=== PATIENT | male | born 2000 | race Caucasian/White ===

== ENCOUNTER 2021-07-02 19:45 | Emergency (ER) | payer MEDICAID, SELFPAY ==
[2021-07-02 19:51] VITALS: BP 121/80; PULSE 82; RESP 16; TEMP 36.6; O2SAT 98; BMI 26.4
--- NOTE | 2021-07-02 20:22 | ED.PSYCH ---
HPI - Psych General Chief Complaint: Psychiatric Symptoms <Jewel Barbosa MD - Last Filed: 07/02/21 21:37> Stated Complaint: SI <Jewel Barbosa MD - Last Filed: 07/02/21 21:37> Time Seen by Provider: 07/02/21 20:09 <Jewel Barbosa MD - Last Filed: 07/02/21 21:37> Source: patient and RN notes reviewed <Jewel Barbosa MD - Last Filed: 07/02/21 21:37> Mode of arrival: EMS <Jewel Barbosa MD - Last Filed: 07/02/21 21:37> Limitations: no limitations <Jewel Barbosa MD - Last Filed: 07/02/21 21:37> History of Present Illness HPI Narrative: 20-year-old male who presents emergency department for evaluation of suicidal ideation. The patient has a history of depression, anxiety and PTSD. The patient states that he has been feeling depressed for weeks. He states that he is currently feeling suicidal and he cut his left wrist with a [employer] card prior to coming to the emergency department. Patient states that he is depression is triggered by his father's in 2019. 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 He also states that he has the feeling that he wants to hurt other people but does not have a plan. He states he has never hurt anyone in the past. He reported visual hallucinations to the ED nurse. He denies fever, chills, chest pain, shortness of breath, nausea, vomiting, numbness or weakness. <Jewel Barbosa MD - Last Filed: 07/02/21 21:37> Related Data Home Medications: Home Medications Medication Instructions Recorded Confirmed aripiprazole 10 mg tablet 10 mg PO DAILY 07/02/21 07/02/21 guanfacine 1 mg tablet 1 mg PO BID 07/02/21 07/02/21 hydroxyzine pamoate 50 mg capsule 50 mg PO BID PRN 07/02/21 07/02/21 melatonin 3 mg tablet 3 mg PO BEDTIME 07/02/21 07/02/21 olanzapine 5 mg tablet 5 mg PO BEDTIME 07/02/21 07/02/21 quetiapine 50 mg tablet 50 mg PO DAILY 07/02/21 07/02/21 <Jewel Barbosa MD - Last Filed: 07/02/21 21:37> Allergies/Adverse Reactions: Allergies Allergy/AdvReac Type Severity Reaction Status Date / Time No Known Allergies Allergy Verified 07/02/21 20:03 <Jewel Barbosa MD - Last Filed: 07/02/21 21:37> Review of Systems Review of Systems: Yes all other systems are reviewed and are negative <Jewel Barbosa MD - Last Filed: 07/02/21 21:37> [facility] Past Medical History [facility] Narrative: Past medical history: Depression, anxiety, PTSD. Past surgical history: None. Social history: He smokes 1 pack of cigarettes per day x1 year. He states that he drinks alcohol but has not had any alcohol to drink in 1 month. He states that he usually drinks the big his bottle of Sindhu that he can buy. He states that he smokes marijuana daily. <Jewel Barbosa MD - Last Filed: 07/02/21 21:37> Medical History: Medical History (Updated 07/03/21 @ 08:18 by KALYAN Jacobson) Anxiety Depression Intellectual disability PTSD (post-traumatic stress disorder) <Jewel Barbosa MD - Last Filed: 07/02/21 21:37> Social History Social History: Social History Advance Directives: No <Jewel Barbosa MD - Last Filed: 07/02/21 21:37> Physical Exam Vital Signs: Vital Signs: Last Vital Signs Temp 97.9 F 07/02/21 19:51 Pulse 82 07/02/21 19:51 Resp 16 07/02/21 19:51 BP 121/80 07/02/21 19:51 Pulse Ox 98 07/02/21 19:51 BMI result Body Mass Index 26.4 <Jewel Barbosa MD - Last Filed: 07/02/21 21:37> Vital Signs: Last Vital Signs Temp 97.9 F 07/02/21 19:51 Pulse 82 07/02/21 19:51 Resp 16 07/02/21 19:51 BP 121/80 07/02/21 19:51 Pulse Ox 98 07/02/21 19:51 BMI result Body Mass Index 26.4 <KALYAN Jacobson - Last Filed: 07/03/21 08:18> Const: General: cooperative and no acute distress <Jewel Barbosa MD - Last Filed: 07/02/21 21:37> Orientation/consciousness: oriented to person and oriented to place <Jewel Barbosa MD - Last Filed: 07/02/21 21:37> Limitations: no limitations <Jewel Barbosa MD - Last Filed: 07/02/21 21:37> HENMT: Head: Yes normal to inspection, Yes normocephalic and Yes atraumatic <Jewel Barbosa MD - Last Filed: 07/02/21 21:37> Ears: external ears normal <Jewel Barbosa MD - Last Filed: 07/02/21 21:37> General nose exam: Normal external nose present <Jewel Barbosa MD - Last Filed: 07/02/21 21:37> Face and sinus: Yes normal facial exam <Jewel Barbosa MD - Last Filed: 07/02/21 21:37> Mouth: Normal oral and palatal mucosa present <Jewel Barbosa MD - Last Filed: 07/02/21 21:37> Throat: Yes posterior oropharynx normal <Jewel Barbosa MD - Last Filed: 07/02/21 21:37> Eyes: General: appearance normal, both eyes and all related structures <Jewel Barbosa MD - Last Filed: 07/02/21 21:37> Pupils: Equal, round and reactive pupils present <Jewel Barbosa MD - Last Filed: 07/02/21 21:37> Neck: Neck: Yes normal visual inspection, Yes no lymphadenopathy, Yes trachea midline and Yes supple <Jewel Barbosa MD - Last Filed: 07/02/21 21:37> Chest: Chest palpation & inspection: normal inspection of the chest and normal palpation of entire chest wall <Jewel Barbosa MD - Last Filed: 07/02/21 21:37> Resp: Effort & Inspection: normal respiratory effort and able to speak in complete sentences <MD Dariusz Jeronimo Last Filed: 07/02/21 21:37> Auscultation: clear to auscultation bilaterally <MD Dariusz Jeronimo Last Filed: 07/02/21 21:37> Cardio: Rate: regular rate <MD Dariusz Jeronimo Last Filed: 07/02/21 21:37> Rhythm: regular rhythm <MD Dariusz Jeronimo Last Filed: 07/02/21 21:37> Heart sounds: S1 normal heart sound present, S2 normal heart sound present and no murmurs <MD Dariusz Jeronimo Last Filed: 07/02/21 21:37> GI: Inspection: Yes normal to inspection <MD Dariusz Jeronimo Last Filed: 07/02/21 21:37> Palpation (GI): Soft to palpation, nontender and no guarding <MD Dariusz Jeronimo Last Filed: 07/02/21 21:37> Auscultation: normal bowel sounds <MD Dariusz Jeronimo Last Filed: 07/02/21 21:37> : General: Yes no CVA tenderness <MD Dariusz Jeronimo Last Filed: 07/02/21 21:37> Back/Spine/Pelvis: Back: no CVA tenderness <MD Dariusz Jeronimo Last Filed: 07/02/21 21:37> Skin: Other: Superficial abrasion to the left wrist consistent with the patient's description of trying to cut himself with a [employer] card <MD Dariusz Jeronimo Last Filed: 07/02/21 21:37> Neuro: General: oriented to person and oriented to place <MD Dariusz Jeronimo Last Filed: 07/02/21 21:37> Cranial nerves: Yes CN's II-XII intact bilaterally and Yes Equal, round and reactive pupils present <MD Dariusz Jeronimo Last Filed: 12/07/21 21:37> Cognition (Neuro): normal cognition <Jewel Barbosa MD - Last Filed: 07/02/21 21:37> Motor exam (neuro): 5/5 motor strength present throughout <Jewel Barbosa MD - Last Filed: 07/02/21 21:37> Extrem: General: Yes normal to inspection <Jewel Barbosa MD - Last Filed: 07/02/21 21:37> Psych: Appearance: grossly normal <Jewel Barbosa MD - Last Filed: 07/02/21 21:37> Speech and movement: Normal speech and movement present <Jewel Barbosa MD - Last Filed: 07/02/21 21:37> Affect: Other affect and mood findings present (Flat affect) <Jewel Barbosa MD - Last Filed: 07/02/21 21:37> Attitude: cooperative <Jeewl Barbosa MD - Last Filed: 07/02/21 21:37> Thought process: Normal thought process present <Jewel Barbosa MD - Last Filed: 07/02/21 21:37> Thought content: Suicidality present and Homicidality present <Jewel Barbosa MD - Last Filed: 07/02/21 21:37> Course Course Course Narrative: 20-year-old male with a history of depression, anxiety, PTSD currently who is currently living in a [address] residency program and he states that he has been there 3 weeks, who presents emergency department for evaluation of suicidal ideation, homicidal ideation and visual hallucination. Initial vital signs were normal. Physical examination revealed a flat affect otherwise the patient was cooperative and is exam was unremarkable. I ordered a CBC, BMP, COVID-19, urine drug screen, alcohol level, acetaminophen level and salicylate level. 2136: Patient's COVID-19 was negative, CBC and CMP were normal. Salicylates, acetaminophen and alcohol were all below detectable limits. At the end of my shift, the patient's N evaluation is pending, therefore the patient's care was turned over to my colleague, Dr. Melody Nelson. <Jewel Barbosa MD - Last Filed: 07/02/21 21:37> MDM - Psych Lab Data Result diagrams: : 07/02/21 20:30 07/02/21 20:30 <Jewel Barbosa MD - Last Filed: 07/02/21 21:37> Labs: Lab Results 07/02/21 07/02/21 07/02/21 Range/Units 20:06 20:30 20:30 WBC 9.2 (4.8-10.8) X10*3/uL RBC 5.28 (4.60-5.80) X10*6/uL Hgb 15.8 (14.0-18.0) g/dl Hct 45.6 (42.0-52.0) % MCV 86.4 (80.0-98.0) fL MCH 29.9 (27.0-33.0) pg MCHC 34.6 (31.0-36.0) g/dl RDW 12.4 (11.0-16.0) % Plt Count 309 (160-400) X10*3/uL MPV 9.6 (9.4-12.4) fL Immature Gran % (Auto) 0.3 (0.0-0.4) % Neut % (Auto) 62.8 (45-73) % Lymph % (Auto) 26.3 (20-40) % Fleming % (Auto) 9.1 (2-11) % Eos % (Auto) 1.0 (0-4) % Baso % (Auto) 0.5 (0-2) % Lymph # (Auto) 2.4 (1.2-4.9) X10*3/uL Fleming # (Auto) 0.8 (0.1-1.2) X10*3/uL Eos # (Auto) 0.1 (0.0-0.4) X10*3/uL Baso # (Auto) 0.1 (0.0-0.2) X10*3/uL Abs Immat Gran (auto) 0.03 (0.00-0.03) X10*3/uL Absolute Neuts (auto) 5.8 (2.0-8.3) x10*3/uL Absolute Nucleated RBC 0.000 (0.0-0.012) X10*3/uL Nucleated RBC % (auto) 0.0 (0.0-0.2) /100WBC Sodium 144 (135-145) mmol/L Potassium 3.9 (3.3-5.1) mmol/L Chloride 105 (96-108) mmol/L Carbon Dioxide 27 (22-29) mmol/L Anion Gap 16 (12-20) BUN 7 L (9-16) mg/dL Creatinine 1.38 (0.5-1.4) mg/dL Estim Creat Clear Calc 91.6 Estimated GFR > 60 Random Glucose 89 (60-115) mg/dL Calcium 10.2 (8.4-10.2) mg/dL Total Bilirubin 0.9 (0.0-1.0) mg/dL Direct Bilirubin 0.4 (0.0-0.5) mg/dL AST 24 (5-37) U/L ALT 26 (0-40) U/L Alkaline Phosphatase 68 (39-117) U/L Total Protein 7.2 (6.5-8.0) g/dL Albumin 4.8 (3.5-5.0) g/dL Salicylates < 5.0 L (15-30) mg/dL Acetaminophen < 1 (<30) mcg/mL Ethyl Alcohol mg/dL COVID-19 (SARABJIT) Negative (Negative) COVID-19 Clin Com See Note 07/02/21 Range/Units 20:31 WBC (4.8-10.8) X10*3/uL RBC (4.60-5.80) X10*6/uL Hgb (14.0-18.0) g/dl Hct (42.0-52.0) % MCV (80.0-98.0) fL MCH (27.0-33.0) pg MCHC (31.0-36.0) g/dl RDW (11.0-16.0) % Plt Count (160-400) X10*3/uL MPV (9.4-12.4) fL Immature Gran % (Auto) (0.0-0.4) % Neut % (Auto) (45-73) % Lymph % (Auto) (20-40) % Fleming % (Auto) (2-11) % Eos % (Auto) (0-4) % Baso % (Auto) (0-2) % Lymph # (Auto) (1.2-4.9) X10*3/uL Fleming # (Auto) (0.1-1.2) X10*3/uL Eos # (Auto) (0.0-0.4) X10*3/uL Baso # (Auto) (0.0-0.2) X10*3/uL Abs Immat Gran (auto) (0.00-0.03) X10*3/uL Absolute Neuts (auto) (2.0-8.3) x10*3/uL Absolute Nucleated RBC (0.0-0.012) X10*3/uL Nucleated RBC % (auto) (0.0-0.2) /100WBC Sodium (135-145) mmol/L Potassium (3.3-5.1) mmol/L Chloride (96-108) mmol/L Carbon Dioxide (22-29) mmol/L Anion Gap (12-20) BUN (9-16) mg/dL Creatinine (0.5-1.4) mg/dL Estim Creat Clear Calc Estimated GFR Random Glucose (60-115) mg/dL Calcium (8.4-10.2) mg/dL Total Bilirubin (0.0-1.0) mg/dL Direct Bilirubin (0.0-0.5) mg/dL AST (5-37) U/L ALT (0-40) U/L Alkaline Phosphatase (39-117) U/L Total Protein (6.5-8.0) g/dL Albumin (3.5-5.0) g/dL Salicylates (15-30) mg/dL Acetaminophen (<30) mcg/mL Ethyl Alcohol < 10 mg/dL COVID-19 (SARABJIT) (Negative) COVID-19 Clin Com <Jewel Barbosa MD - Last Filed: 07/02/21 21:37> Lab Results 07/02/21 07/02/21 07/02/21 Range/Units 20:06 20:30 20:30 WBC 9.2 (4.8-10.8) X10*3/uL RBC 5.28 (4.60-5.80) X10*6/uL Hgb 15.8 (14.0-18.0) g/dl Hct 45.6 (42.0-52.0) % MCV 86.4 (80.0-98.0) fL MCH 29.9 (27.0-33.0) pg MCHC 34.6 (31.0-36.0) g/dl RDW 12.4 (11.0-16.0) % Plt Count 309 (160-400) X10*3/uL MPV 9.6 (9.4-12.4) fL Immature Gran % (Auto) 0.3 (0.0-0.4) % Neut % (Auto) 62.8 (45-73) % Lymph % (Auto) 26.3 (20-40) % Fleming % (Auto) 9.1 (2-11) % Eos % (Auto) 1.0 (0-4) % Baso % (Auto) 0.5 (0-2) % Lymph # (Auto) 2.4 (1.2-4.9) X10*3/uL Fleming # (Auto) 0.8 (0.1-1.2) X10*3/uL Eos # (Auto) 0.1 (0.0-0.4) X10*3/uL Baso # (Auto) 0.1 (0.0-0.2) X10*3/uL Abs Immat Gran (auto) 0.03 (0.00-0.03) X10*3/uL Absolute Neuts (auto) 5.8 (2.0-8.3) x10*3/uL Absolute Nucleated RBC 0.000 (0.0-0.012) X10*3/uL Nucleated RBC % (auto) 0.0 (0.0-0.2) /100WBC Sodium 144 (135-145) mmol/L Potassium 3.9 (3.3-5.1) mmol/L Chloride 105 (96-108) mmol/L Carbon Dioxide 27 (22-29) mmol/L Anion Gap 16 (12-20) BUN 7 L (9-16) mg/dL Creatinine 1.38 (0.5-1.4) mg/dL Estim Creat Clear Calc 91.6 Estimated GFR > 60 Random Glucose 89 (60-115) mg/dL Calcium 10.2 (8.4-10.2) mg/dL Total Bilirubin 0.9 (0.0-1.0) mg/dL Direct Bilirubin 0.4 (0.0-0.5) mg/dL AST 24 (5-37) U/L ALT 26 (0-40) U/L Alkaline Phosphatase 68 (39-117) U/L Total Protein 7.2 (6.5-8.0) g/dL Albumin 4.8 (3.5-5.0) g/dL Salicylates < 5.0 L (15-30) mg/dL Acetaminophen < 1 (<30) mcg/mL Ethyl Alcohol mg/dL COVID-19 (SARABJIT) Negative (Negative) COVID-19 Clin Com See Note 07/02/21 Range/Units 20:31 WBC (4.8-10.8) X10*3/uL RBC (4.60-5.80) X10*6/uL Hgb (14.0-18.0) g/dl Hct (42.0-52.0) % MCV (80.0-98.0) fL MCH (27.0-33.0) pg MCHC (31.0-36.0) g/dl RDW (11.0-16.0) % Plt Count (160-400) X10*3/uL MPV (9.4-12.4) fL Immature Gran % (Auto) (0.0-0.4) % Neut % (Auto) (45-73) % Lymph % (Auto) (20-40) % Fleming % (Auto) (2-11) % Eos % (Auto) (0-4) % Baso % (Auto) (0-2) % Lymph # (Auto) (1.2-4.9) X10*3/uL Fleming # (Auto) (0.1-1.2) X10*3/uL Eos # (Auto) (0.0-0.4) X10*3/uL Baso # (Auto) (0.0-0.2) X10*3/uL Abs Immat Gran (auto) (0.00-0.03) X10*3/uL Absolute Neuts (auto) (2.0-8.3) x10*3/uL Absolute Nucleated RBC (0.0-0.012) X10*3/uL Nucleated RBC % (auto) (0.0-0.2) /100WBC Sodium (135-145) mmol/L Potassium (3.3-5.1) mmol/L Chloride (96-108) mmol/L Carbon Dioxide (22-29) mmol/L Anion Gap (12-20) BUN (9-16) mg/dL Creatinine (0.5-1.4) mg/dL Estim Creat Clear Calc Estimated GFR Random Glucose (60-115) mg/dL Calcium (8.4-10.2) mg/dL Total Bilirubin (0.0-1.0) mg/dL Direct Bilirubin (0.0-0.5) mg/dL AST (5-37) U/L ALT (0-40) U/L Alkaline Phosphatase (39-117) U/L Total Protein (6.5-8.0) g/dL Albumin (3.5-5.0) g/dL Salicylates (15-30) mg/dL Acetaminophen (<30) mcg/mL Ethyl Alcohol < 10 mg/dL COVID-19 (SARABJIT) (Negative) COVID-19 Clin Com <KALYAN Jacobson - Last Filed: 07/03/21 08:18> Discharge Plan Discharge Clinical Impression: Depression <Jewel Barbosa MD - Last Filed: 07/02/21 21:37> Patient Disposition: Still a Patient <Jewel Barbosa MD - Last Filed: 07/02/21 21:37> Prescriptions: No Action aripiprazole 10 mg Tablet 10 mg PO DAILY RF: 0 quetiapine 50 mg Tablet 50 mg PO DAILY RF: 0 guanfacine 1 mg Tablet 1 mg PO BID RF: 0 melatonin 3 mg Tablet 3 mg PO BEDTIME RF: 0 hydroxyzine pamoate 50 mg capsule 50 mg PO BID PRN (Reason: Anxiety) RF: 0 olanzapine 5 mg tablet 5 mg PO BEDTIME RF: 0 <Jewel Barbosa MD - Last Filed: 07/02/21 21:37>
[2021-07-02 20:31] LABS: COVID-19 Test Negative (Negative)
[2021-07-02 20:37] LABS: MANUAL DIFF FLAG NO
[2021-07-02 20:38] LABS: Basophils Absolute Auto 0.1 X10*3/uL (0.0-0.2); Basophils Percent Auto 0.5 % (0-2); Eosinophils Absolute Auto 0.1 X10*3/uL (0.0-0.4); Hematocrit 45.6 % (42.0-52.0); Hemoglobin 15.8 g/dl (14.0-18.0); Imm Gran Abs Auto 0.03 X10*3/uL (0.00-0.03); Imm Gran Pct Auto 0.3 % (0.0-0.4); Lymphocytes Absolute Auto 2.4 X10*3/uL (1.2-4.9); Lymphocytes Percent Auto 26.3 % (20-40); Mean Corpuscular HGB Conc 34.6 g/dl (31.0-36.0); Mean Corpuscular Hemoglobin 29.9 pg (27.0-33.0); Mean Corpuscular Volume 86.4 fL (80.0-98.0); Mean Platelet Volume 9.6 fL (9.4-12.4); Monocytes Absolute Auto 0.8 X10*3/uL (0.1-1.2); Monocytes Percent Auto 9.1 % (2-11); Neutrophils Absolute Auto 5.8 x10*3/uL (2.0-8.3); Neutrophils Percent Auto 62.8 % (45-73); Platelet Count 309 X10*3/uL (160-400); Red Blood Count 5.28 X10*6/uL (4.60-5.80); Red Cell Distribution Width 12.4 % (11.0-16.0); White Blood Count 9.2 X10*3/uL (4.8-10.8)
[2021-07-02 20:49] LABS: Ethanol < 10 mg/dL
[2021-07-02 20:57] LABS: Acetaminophen LAB < 1 mcg/mL (<30); Anion Gap 16 (12-20); Blood Urea Nitrogen 7 mg/dL (9-16); Calcium 10.2 mg/dL (8.4-10.2); Carbon Dioxide 27 mmol/L (22-29); Chloride 105 mmol/L (96-108); Creatinine Clr Calc Pharmacy 91.6; Estimated Glomerular Filt Rate > 60; Glucose Random 89 mg/dL (60-115); Potassium 3.9 mmol/L (3.3-5.1); Sodium 144 mmol/L (135-145)
[2021-07-02 21:09] LABS: Salicylate < 5.0 mg/dL (15-30)
[2021-07-02 21:18] LABS: Alanine Aminotransferase 26 U/L (0-40); Albumin Level 4.8 g/dL (3.5-5.0); Alkaline Phosphatase 68 U/L (39-117); Aspartate Amino Transferase 24 U/L (5-37); Bilirubin Direct 0.4 mg/dL (0.0-0.5); Bilirubin Total 0.9 mg/dL (0.0-1.0); Total Protein 7.2 g/dL (6.5-8.0)
--- NOTE | 2021-07-03 06:24 | PC.NURSE ---
Patient slept through the night, no distress observed/reported, behavior appropriate non concerning at this time, patient was evaluated by STEFAN, disposition is [facility] follow up by LLOYDN possible respite bed search, VSS, med rec completed, will continue to monitor.
--- NOTE | 2021-07-03 07:17 | PC.NURSE ---
patient appears to remain at rest at present, respirations are even and unlabored, patient appears in no distress
[2021-07-03] MEDS: QUEtiapine Fumarate 50 MG TABLET PO (10:17)
[2021-07-03] MEDS: ARIPiprazole 10 MG TABLET PO (10:17)
== END 2021-07-03 16:19 | disposition home or self-care (01) ==
PROVIDERS: Emergency Medicine; Emergency Provider Emergency Medicine Emergency Medical Services
DX: F33.1 Major depressive disorder, recurrent, moderate (principal); R45.851 Suicidal ideations; F43.10 Post-traumatic stress disorder, unspecified; Z20.822 Contact with and (suspected) exposure to COVID-19; Z79.899 Other long term (current) drug therapy; F17.210 Nicotine dependence, cigarettes, uncomplicated; Z71.6 Tobacco abuse counseling
CPT/HCPCS: 36415; 80048; 80076; 80143; 80179; 82077; 85025; 87635; 99283; 99285